=== PATIENT | male | born 1980 | race Caucasian/White ===

== ENCOUNTER → 2017-10-14 | Outpatient (CLI) | payer OTHER ==
--- NOTE | 2017-10-14 13:00 | XR ---
EXAMINATION TYPE: XR orbit complete bilateral DATE OF EXAM: 10/14/2017 COMPARISON: NONE HISTORY: History of orbital metal. Pre-MRI clearance. TECHNIQUE: 4 views of the orbits were obtained. FINDINGS: Paranasal sinuses appear well aerated. There is mild leftward nasal septal deviation. No ra diopaque metallic foreign body is seen. Calvarium is intact. Multiple dental fillings are incidentall y noted. IMPRESSION: No orbital metallic radiopaque foreign body.
--- NOTE | 2017-10-14 16:21 | MR ---
EXAMINATION TYPE: MR cervical spine wo con DATE OF EXAM: 10/14/2017 1:49 PM COMPARISON: NONE HISTORY: Cervical disc degeneration Multiplanar MultiSpin echo imaging of the cervical spine was performed. Comparison: none C2-C3: No evidence for degenerative disc disease. No disc bulge/herniation or protrusion. No Canal stenosis. Foramina are patent bilaterally. C3-C4: No evidence for degenerative disc disease. No disc bulge/herniation or protrusion. No Canal stenosis. Foramina are patent bilaterally. C4-C5: No evidence for degenerative disc disease. No disc bulge/herniation or protrusion. No Canal stenosis. Foramina are patent bilaterally. C5-C6: Mild decreased signal ossified compatible with degenerative disc disease. Posterocentral disc bulge with annular tear noted and mild effacement ventral thecal sac. No evidence for conrad herniatio n. No central stenosis or foraminal encroachment. C6-C7: There is mild disc desiccation. Mild subligamentous right paracentral disc herniation with rig ht foraminal encroachment. No evidence for cord contact or central stenosis. C7-T1: No evidence for degenerative disc disease. No disc bulge/herniation or protrusion. No Canal stenosis. Foramina are patent bilaterally. Cervical segments are intact. There is normal alignment. Cervical spinal cord is of normal signal. Craniovertebral junction relationships are within normal limits. IMPRESSION: 1. Degenerative disc disease as discussed. 2. Mild right paracentral disc herniation C6-7 with the right foraminal encroachment. 3. Posterocentral disc bulge at C5-6 with associated annular tear.
== END | disposition home or self-care (01) ==
LOC: RADMRIMAIN 12:19
PROVIDERS: ATTEND Family Medicine
DX: M50.122 Cervical disc disorder at C5-C6 level with radiculopathy (principal); T15.92XA Foreign body on external eye, part unspecified, left eye, initial encounter; T15.91XA Foreign body on external eye, part unspecified, right eye, initial encounter
CPT/HCPCS: 70200; 72141

== ENCOUNTER → 2017-11-19 | Outpatient (CLI) | payer OTHER ==
[2017-11-14 11:21] VITALS: BMI 23.7
[2017-11-19 11:56] VITALS: BP 120/74; PULSE 84; RESP 18; TEMP 98.3
--- NOTE | 2017-11-19 15:49 | P.CONS ---
History of Present Illness - Reason for Consult Consult date: 11/19/17 - History of Present Illness This is 37 years old male, with a chronic history of severe neck pain with radiation to the right upper extremity associated with numbness and tingling sensation, started several years ago, he denies any initiating event the pain intensity is over and he was treated with physical therapy and pain medication and injected limited improvement only for short-term, he denies any fever or night sweats. Denies any change in the bowel movement or urination and he had no motor or sensory deficits, he reported that he used to feel that his right upper extremity is weaker than the left side but after physical therapy the motor strength improved, Past Medical History Additional Past Medical History / Comment(s): DDD LUMBAR AREA & HERNIATED CERVICAL DISCS WITH PAIN., TINNITUS RIGHT EAR. History of Any Multi-Drug Resistant Organisms: None Reported Past Surgical History: No Surgical Hx Reported Additional Past Anesthesia/Blood Transfusion Reaction / Comm: HAS NEVER RECEIVED ANESTHESIA. 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 Past Drug Use History: Marijuana Additional Drug Use History / Comment(s): MARIJUANA CARD- STATES NO CURRENT USE. - Past Family History Mother Family Medical History: No Reported History Medications and Allergies Home Medications Medication Instructions Recorded Confirmed Type HYDROcodone/APAP 7.5-325MG [[place] 1 tab PO QID PRN 09/19/16 11/19/17 History 7.5-325] Naproxen [Naprosyn] 500 mg PO PRN 11/14/17 History Allergies Allergy/AdvReac Type Severity Reaction Status Date / Time No Known Allergies Allergy Verified 11/14/17 11:12 Physical Exam Vitals: Vital Signs Temp Pulse Resp BP 11/19/17 11:42 98.3 F 84 18 120/74 Social history : not smoker , NO ETOH , NO Illegal drugs use Review of Systems : 1- Constitutional : no chills , no fever , no night sweats , 2- Ears : no ear discharge , no change in hearing 3-Nose, Mouth ,Throat ; no bleeding gums, no sore throat , no epistaxis , 4-Cardiovascular : Denies chest pain, , no orthopnea , no palpitation 5-Respiratory : Denies cough , no dyspnea , no hemoptysis 6-Gastrointestinal :, no change in bowel habits , no coffee- ground emesis . 7-Genitourinary : No hematuria , no discharge , no incontinence, 8-Musculoskeletal : No gait dysfunction , report neck pain and right upper extremity numbness , 9- Neurological : no ataxia , no tremor , no sezure , 10-Psychatric , no suicidal ideation no hallucination 11- Endocrine : no cold intolerence , no polyuria , no polydypsia , 12-Hematologic : no easy bleeding , no easy brusing , 13-Allergic / immunology : no angioedema , no wheezing ,no allergic rhinitis 14-Integumentary : no brttle nails , no change hair / nails , no foot/leg ulcers . Physical Examinations : 1-Constitutional : Cooperative , not in acute distress . 2-HEENT : nech ; supple , no Lymphadenopathy , no Thyromegaly , :eyes , no icterus, no photophobia . ENT : , normal oropharynx , no Thrush 3- Respiratory : Chest clear to auscultations Bilaterally , no wheezing . 4- Cardiovascular : regular rate and rhythem , S1 , S2 , no S3 , no S4. 5- Gastrointestinal: abdomen soft no tenderness , no organomegally . 6- Genitourinary : Defferred . 7-Integumentary : No cellulitis , no ulcers , normal skin turgor , no cyanotic . 8- neurologic : Cranial nerve II to XII intact , no focal neurological deffecit 9-psychatric : alert , oriented X 3 , appropriate affect , intact judgment and insight . 10-Lymphatic : no Lymphadenopathy. 11- musculoskeltal: normal gait Cervical Spine motor stregnth in the deltoid and biceps, normal right side , normal Left side motor stregnth biceps and the wrist extensors normal right side ,normal left side . motor stregnth in the triceps muscle . normal Right side , normal Left side deep tendon reflexes normal at the biceps , normal at Brachioradialis , normal at triceps. Lumber spine moter stegnth lower extremities ,thigh and legs 5/5 Right side , 5/5 Left side Results Comments: MRI of the cervical spine C5 6 cervical bulging disc disease Assessment and Plan Plan: Assessment and plan= cervical radiculopathy, cervical bulging disc disease Patient could benefit from cervical epidural steroid injections, procedure risk and benefit and alternatives discussed with the patient he agreed with the preceding, patient should continue to use his current pain medication and he is getting his medication refilled from his primary care Time with Patient: Greater than 30
== END | disposition home or self-care (01) ==
LOC: PNWHC3 11:18
PROVIDERS: ATTEND Specialist
DX: G89.29 Other chronic pain (principal); M50.122 Cervical disc disorder at C5-C6 level with radiculopathy; F10.20 Alcohol dependence, uncomplicated; Z79.899 Other long term (current) drug therapy; Z79.52 Long term (current) use of systemic steroids; Z87.891 Personal history of nicotine dependence
CPT/HCPCS: 99201

== ENCOUNTER 2017-12-01 06:54 | Day surgery (SDC) | payer OTHER ==
[2017-11-26 11:50] VITALS: BMI 23.7
[2017-12-01 07:33] VITALS: TEMP 98.3
[2017-12-01] MEDS ORDERED: LACTATED RINGERS 1,000 ML IV ONE ×2 (07:33→07:45)
[2017-12-01] MEDS ORDERED: LIDOCAINE 1% 20 ML VIAL (10MG/ML) FOR IV START INTRADERMA ONE (07:35)
--- NOTE | 2017-12-01 08:43 | P.PCN ---
Date of Procedure: 12/01/17 Surgeon: Alan Navarro Pathology: none sent Condition: stable Disposition: PACU Description of Procedure: PREOPERATIVE DIAGNOSIS: Cervical radiculopathy. POSTOPERATIVE DIAGNOSIS: Cervical radiculopathy. PROCEDURE 1. Cervical epidural steroid injection under fluoroscopic guidance, C7-T1 level. 2. Cervical epidurogram. ANESTHESIA: Local anesthesia with 1% lidocaine and IV sedation with versed/ fentanyl. EBL: Minimal PROCEDURE INDICATION: The patient with neck pain and radiculitis unresponsive to conservative treatment consents for procedure, HARRY #1 tooday. No use of blood thinners. PROCEDURE DESCRIPTION / TECHNIQUE: The patient was seen and identified in the preoperative area. Risks, benefits, complications, and alternatives were discussed with the patient (including but not limited to incomplete pain relief, bleeding, infection, nerve damage, and allergies to medications), the patient agreed to proceed with the procedure and signed the consent after all questions were answered. Patient was taken to the OR and time out was completed to verify proper patient , position, laterality of pain, and allergies. Pt was placed in the prone position. A pillow was placed under the patients chest to increase the cervical interlaminar space. The cervical and high thoracic area was prepped and draped in the usual sterile fashion. Critical pause was taken. Vital signs were closely monitored during the procedure. Conscious sedation was used during the procedure to decrease patients anxiety. Using anterior-posterior fluoroscopy, the C7-T1 interlaminar space was identified and the skin over this site was marked and then infiltrated with 1% lidocaine subcutaneously in a paramedian fashion. Subsequently, a 20-gauge 3-1/2 -inch Tuohy epidural needle was inserted and advanced toward the epidural space by means of the loss of resistance technique and guided by AP and lateral fluoroscopy. After negative aspiration for blood or CSF and in the absence of paresthesias, the correct needle position in the epidural space was verified with the injection of 1 mL of the water soluble contrast dye Omnipaque-180 and observing an excellent epidurogram with the epidural spread of the dye, after negative aspiration for blood and CSF and in the absence of paresthesias. Again after negative aspiration, a 4 ml mixture containing 20 mg of Decadron and 2 ml of preservative free Normal Saline solution was injected and a washout of epidurogram was seen. Needle was withdrawn intact, skin was cleansed, and bandages were applied. COMPLICATIONS: None COMMENTS: DISPOSITION / PLANS: The patient was placed in a supine position and transferred to the recovery area in a stable condition for observation. There was no evidence of upper extremity motor or sensory deficit after the procedure. Patient was discharged from the recovery room after meeting discharge criteria. Home discharge instructions were given to the patient by the staff. The patient was reexamined prior to discharge and there were no issues. The patient will schedule a repeat procedure in 3-4 weeks.
[2017-12-01] MEDS ORDERED: IV FLUID CONTINUATION 1,000 ML IV ONE (08:50)
--- NOTE | 2017-12-01 08:55 | FL ---
EXAMINATION TYPE: FL guided pain mgmt statistic DATE OF EXAM: 12/01/2017 FLUOROSCOPY Fluoroscopy time of 4 seconds was used during cervical epidural injection. 2 image/s document/s the procedure.
[2017-12-01 09:05] VITALS: BP 114/79; PULSE 68; RESP 16
== END 2017-12-01 09:21 | disposition home or self-care (01) ==
LOC: ORPAIN 06:54
PROVIDERS: ATTEND Anesthesiology
DX: M50.122 Cervical disc disorder at C5-C6 level with radiculopathy (principal); M51.36 Other intervertebral disc degeneration, lumbar region; Z87.891 Personal history of nicotine dependence
CPT/HCPCS: 62321; J2250; J1100; Q9965; J3010

== ENCOUNTER 2017-12-23 07:25 | Day surgery (SDC) | payer OTHER ==
[2017-12-18 11:17] VITALS: BMI 23.7
[~2017-12-23 07:25] MED LIST: LACTATED RINGERS 1,000 ML IV SCH
[2017-12-23 08:04] VITALS: TEMP 97
--- NOTE | 2017-12-23 08:20 | P.PCN ---
Date of Procedure: 12/23/17 Surgeon: Jermain Padilla Description of Procedure: PREOPERATIVE DIAGNOSIS: Cervical radiculopathy. POSTOPERATIVE DIAGNOSIS: Cervical radiculopathy. PROCEDURE 1. Cervical epidural steroid injection under fluoroscopic guidance, C7-T1 level. 2. Cervical epidurogram. ANESTHESIA: Local anesthesia with 1% lidocaine and IV sedation with versed/ fentanyl. EBL: Minimal PROCEDURE INDICATION: The patient with neck pain and radiculitis unresponsive to conservative treatment consents for procedure, HARRY #2 tooday. No use of blood thinners. PROCEDURE DESCRIPTION / TECHNIQUE: The patient was seen and identified in the preoperative area. Risks, benefits, complications, and alternatives were discussed with the patient (including but not limited to incomplete pain relief, bleeding, infection, nerve damage, and allergies to medications), the patient agreed to proceed with the procedure and signed the consent after all questions were answered. Patient was taken to the OR and time out was completed to verify proper patient , position, laterality of pain, and allergies. Pt was placed in the prone position. A pillow was placed under the patients chest to increase the cervical interlaminar space. The cervical and high thoracic area was prepped and draped in the usual sterile fashion. Critical pause was taken. Vital signs were closely monitored during the procedure. Conscious sedation was used during the procedure to decrease patients anxiety. Using anterior-posterior fluoroscopy, the C7-T1 interlaminar space was identified and the skin over this site was marked and then infiltrated with 1% lidocaine subcutaneously in a right paramedian fashion. Subsequently, a 20- gauge 3-1/2-inch Tuohy epidural needle was inserted and advanced toward the epidural space by means of the loss of resistance technique and guided by AP and lateral fluoroscopy. After negative aspiration for blood or CSF and in the absence of paresthesias, the correct needle position in the epidural space was verified with the injection of 1 mL of the water soluble contrast dye Omnipaque- 180 and observing an excellent epidurogram with the epidural spread of the dye, after negative aspiration for blood and CSF and in the absence of paresthesias. Again after negative aspiration, a 4 ml mixture containing 10 mg of Decadron and 2 ml of preservative free Normal Saline solution was injected and a washout of epidurogram was seen. Needle was withdrawn intact, skin was cleansed, and bandages were applied. COMPLICATIONS: None COMMENTS: DISPOSITION / PLANS: The patient was placed in a supine position and transferred to the recovery area in a stable condition for observation. There was no evidence of upper extremity motor or sensory deficit after the procedure. Patient was discharged from the recovery room after meeting discharge criteria. Home discharge instructions were given to the patient by the staff. The patient was reexamined prior to discharge and there were no issues.
[2017-12-23] MEDS ORDERED: IV FLUID CONTINUATION 1,000 ML IV ONE (08:29)
[2017-12-23 08:31] VITALS: RESP 16
[2017-12-23 08:50] VITALS: BP 140/80; PULSE 75
--- NOTE | 2017-12-23 11:41 | FL ---
Fluoroscopy INDICATION: Pain FINDINGS: Fluoroscopy time: 4 seconds. Images obtained: 1. IMPRESSIONS: 1. Documentation of fluoroscopy.
== END 2017-12-23 08:50 | disposition home or self-care (01) ==
LOC: ORPAIN 07:25
PROVIDERS: ATTEND Anesthesiology
DX: M54.12 Radiculopathy, cervical region (principal)
CPT/HCPCS: 62321; J2250; J1100; Q9965; J3010

== ENCOUNTER → 2018-02-04 | Outpatient (CLI) | payer OTHER ==
[2018-02-04 14:01] VITALS: BP 118/65; PULSE 73; RESP 16
--- NOTE | 2018-02-04 14:19 | P.PN ---
Progress Note - Text Progress Note Date: 02/04/18 Patient returns for followup for chronic neck pain with radiation to R shoulder. Patient recently underwent HARRY x 2 with good relief, but has had some pain return in his right shoulder after he "slept wrong" last week. This acute pain is increasing slowly. Patient denies adverse drug effects from medications. Today, pt denies new-onset weakness, bowel/bladder incontinence, or any other signs or symptoms of cauda equina syndrome. There are no signs of acute intoxication, and no indications of medication diversion or overuse. In addition to above, 13-point review of systems is also negative for chest pain , shortness of breath, changes in vision, changes in hearing, new onset weakness , abdominal pain, diarrhea, extreme fatigue, malaise, fever, skin changes, homicidal or suicidal ideation, or bowel or bladder incontinence. Vital Signs: Reviewed in EMR Gen: WDWN, AAOx3, NAD HEENT: NCAT, EOMI, hearing grossly normal Pulm: resp unlabored Abd: soft, NT, ND Neck: supple, trachea midline ROM in flexion cervical spine: full ROM in extension cervical spine: reduced Cervical paravertebral tenderness: + Cervical Facet tenderness: neg Spurling's: +RUE Upper extremity: decreased automatic mounter strength RUE secondary to pain Imaging: Reviewed in EMR Assessment: 1. cervical radiculitis 2. chronic pain syndrome Plan: 1. Explanation: Opioid and psychological risk scores were reviewed. Diagnoses , prognoses, and multiple treatment options including but not limited to physical therapy, interventional therapies, adjuvant medical therapies, narcotic medication therapies, and surgery were discussed with the patient and all questions were answered to the patient's satisfaction. 2. Opioid agreement: no opioids prescribed today 3. Counseling: The patient was counseled extensively on SMOKING CESSATION, BODY MASS INDEX, EXERCISE. Specifically, the patient was instructed regarding the importance of smoking cessation, weight control, and exercise in the context of both chronic pain and overall health. 4. Procedures: cervical ARAM #3 in eight weeks 5. Consultations: None 6. Investigations: UDS not done today, MAPS queried and appropriate 7. Medications: none prescribed 8. Morphine equivalents per day prescribed: zero 9. Disposition: f/u for HARRY as scheduled PQRS measures: 1-Patient's medications are documented in the chart. 2-Tobacco use is positive, counseling given 3-Patient has not had a pneumococcal vaccine. 4-Advanced care planning discussed, patient unable to give. 5-Opioid contract NOT signed with the patient. 6-Pain positive, follow-up visit or procedure scheduled 7-Patient's blood pressure measured and documented, and patient will follow up with the primary care due to hypertension. 8-Patient's weight was measured, and body mass index WNL. 9-Patient WAS NOT identified as an unhealthy alcohol user.
== END | disposition home or self-care (01) ==
LOC: PNWHC3 13:26
PROVIDERS: ATTEND Anesthesiology
DX: G89.4 Chronic pain syndrome (principal); M54.12 Radiculopathy, cervical region; M54.2 Cervicalgia
CPT/HCPCS: 99211

== ENCOUNTER 2018-04-01 09:00 | Day surgery (SDC) | payer OTHER ==
[2018-03-27 14:36] VITALS: BMI 23.7
[2018-04-01 09:24] VITALS: RESP 16; TEMP 97.6
[2018-04-01] MEDS ORDERED: LIDOCAINE 1% 20 ML VIAL (10MG/ML) FOR IV START INTRADERMA ONE (09:32)
--- NOTE | 2018-04-01 10:19 | P.OP ---
Date of Procedure: 04/01/18 Surgeon: Andres Irizarry Description of Procedure: PREOPERATIVE DIAGNOSIS: Cervical radiculopathy Cervical degenerative disc disease POSTOPERATIVE DIAGNOSIS: Cervical radiculopathy Cervical degenerative disc disease PROCEDURE Cervical neural steroid injection under fluoroscopic guidance at the C7-T1 interspace. ANESTHESIA: Local with 1% lidocaine 3 ml and IV sedation with Versed 2 mg EBL: Minimal PROCEDURE INDICATION: This is a very pleasant 38-year-old gentleman with a history of a disc bulge as well as a disc tear at C5 6 on his MRI who has intractable neck and right shoulder pain. He also previously had pain radiating all the way down his right arm into his hand. He is undergone 2 previous cervical epidural steroid injections and reports both of these gave him significant reduction of his pain with greater than 50% of his pain being gone after these procedures. His pain has returned somewhat and he presents today for repeat of this procedure. PROCEDURE DESCRIPTION / TECHNIQUE: The patient was seen and identified in the preoperative area. Risks, benefits , complications including but not limited to infections ,bleeding ,allergic reaction to the medications ,nerve damage and incomplete pain relief, and alternatives were discussed with the patient. The patient agreed to proceed with the procedure and signed the consent. IV was started, and vital signs were stable. Patient was taken to the OR and time out was completed. The patient was placed in the prone position on procedure table and a pillow was placed under the chest area.. The cervical area was prepped and draped in the usual sterile fashion. Conscious sedation was used during the procedure to decrease patient s anxiety. Vital signs was monitered during the entire procedure. Using anterior-posterior fluoroscopy, the C7-T1 interlaminar space was identified and the skin over this site was marked and then infiltrated with 1% lidocaine subcutaneously. Subsequently, a 20-gauge Tuohy epidural needle was inserted and advanced toward the epidural space using the loss of resistance technique and guided by AP and lateral fluoroscopy. The correct needle position in the epidural space was verified with the injection of contrast and observing an excellent epidurogram with the epidural spread of the dye, after negative aspiration for blood and CSF and in the absence of paresthesias. Again after negative aspiration, a 4 ml mixture containing 20 mg of Dexamethasone was injected. Needle was withdrawn intact, skin was cleansed, and bandages were applied. COMPLICATIONS: None DISPOSITION / PLANS: The patient was placed in a supine position and transferred to the recovery area in a stable condition for observation. There was no evidence of lower extremity motor or sensory deficit after the procedure. Patient was discharged from the recovery room after meeting discharge criteria. Home discharge instructions were given to the patient by the staff. The patient was reexamined prior to discharge. The patient will schedule a follow up in the clinic on an as-needed basis.
[2018-04-01] MEDS ORDERED: IV FLUID CONTINUATION 825 ML IV ONE (10:40)
[2018-04-01 11:01] VITALS: BP 120/77; PULSE 56
--- NOTE | 2018-04-01 12:00 | FL ---
Fluoroscopy INDICATION: Pain FINDINGS: Fluoroscopy time: 2 seconds. Images obtained: 2. IMPRESSIONS: 1. Documentation of fluoroscopy.
== END 2018-04-01 11:02 | disposition home or self-care (01) ==
LOC: ORPAIN 09:00
PROVIDERS: ATTEND Pain Medicine Pain Medicine
DX: M50.10 Cervical disc disorder with radiculopathy, unspecified cervical region (principal)
CPT/HCPCS: 62321; J2250; J1030; J3010; Q9966; 99152

== ENCOUNTER → 2018-11-10 | Outpatient (CLI) | payer OTHER ==
[2018-11-10 12:00] VITALS: BP 122/77; PULSE 98; RESP 18
--- NOTE | 2018-11-10 12:14 | P.PN ---
Subjective Progress Note Date: 11/10/18 Principal diagnosis: Right cervical radiculopathy This is a 38-year-old gentleman with neck pain with radiation down the right upper extremity to the hand with occasional numbness and tingling in the medial 2 fingers. The patient had 3 cervical epidural steroid injection previously the last one was in May of last year which helped him significantly with this pain and His numbness only. The patient is back today asking her to be scheduled for another injection on his neck. The patient denies any other health issues and denies taking any anticoagulants. He denies any weakness in the upper or lower extremities or any bowel or bladder dysfunction. By physical exam he is alert oriented 3 no apparent distress Neuro exam of the upper extremities showed normal and symmetrical muscle strength He has absent right triceps reflex but the rest of his reflexes are normal Positive tenderness in the cervical and upper thoracic right paravertebral musculature. The patient will be scheduled for another series of cervical epidural steroid injection under fluoroscopic guidance at C7-T1 in the right paramedian approach 3. Objective - Vital Signs Vital signs: Vital Signs Temp Pulse 98 11/10/18 11:53 Resp 18 11/10/18 11:53 BP 122/77 11/10/18 11:53 Pulse Ox 97 11/10/18 11:53 Intake & Output 11/09/18 11/10/18 11/10/18 18:59 06:59 18:59 Weight 81.647 kg
== END | disposition home or self-care (01) ==
LOC: PNWHC3 11:38
PROVIDERS: ATTEND Anesthesiology
DX: M54.12 Radiculopathy, cervical region (principal)
CPT/HCPCS: 99211

== ENCOUNTER 2018-11-23 11:57 | Emergency (ER) | payer OTHER ==
[2018-11-23 12:03] VITALS: TEMP 98.4
[2018-11-23] MEDS ORDERED: LIDOCAINE 1% INJ 10MG/ML (20 ML MDV) SQ ONE (13:11)
--- NOTE | 2018-11-23 13:55 | XR ---
EXAMINATION TYPE: XR finger RT DATE OF EXAM: 11/23/2018 COMPARISON: None HISTORY: Pain laceration near the proximal interphalangeal joint space TECHNIQUE: 2 view right index finger FINDINGS: There is some mild soft tissue swelling over the proximal interphalangeal joint region. No acute displaced fractures are evident. Joint spaces appear preserved. IMPRESSION: 1. Mild soft tissue swelling proximal interphalangeal joint space. 2. No radiopaque foreign bodies. 3. No acute osseous abnormality. 4. Follow-up exams can be performed 7-10 days from acute trauma for continued pain.
--- NOTE | 2018-11-23 14:04 | ED ---
Wound/Laceration HPI - General Chief Complaint: Wound/Laceration Stated Complaint: IHS-Finger Lac Time Seen by Provider: 11/23/18 12:27 Source: patient Mode of arrival: ambulatory Limitations: no limitations - History of Present Illness Initial Comments: 38-year-old male no past medical history presenting today for chief complaint of right index finger laceration. Patient states just prior to arrival he was at work when he was moving a cabinet, he states he slid the cabinet over his hand it was a sharp point on the bottom cutting his knuckle at the right next to her. Patient states it appeared superficial, however he thought it could use a stitch and presented for evaluation. Patient states his tetanus is up-to- date last 5 years. Patient denies any significant force or crushing mechanism. Patient denies any pain with range of motion at the digit, weakness or loss sensation. Remaining ROS (-) patient denies any recent fever, chills, shortness of breath, chest pain, back pain, abdominal pain, nausea or vomiting, numbness or tingling, dysuria or hematuria, constipation or diarrhea, headaches or visual changes, or any other complaints.Upon arrival pt appears well, no active bleeding. - Related Data Home Medications Medication Instructions Recorded Confirmed HYDROcodone/APAP 7.5-325MG [[place] 1 tab PO QID PRN 09/19/16 11/20/18 7.5-325] Cyclobenzaprine [Flexeril] 10 mg PO HS PRN 11/20/18 11/20/18 Allergies Allergy/AdvReac Type Severity Reaction Status Date / Time No Known Allergies Allergy Verified 11/23/18 11:59 Review of Systems ROS Statement: Those systems with pertinent positive or pertinent negative responses have been documented in the HPI. ROS Other: All systems not noted in ROS Statement are negative. 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 "bad headaches", History of Any Multi-Drug Resistant Organisms: None Reported Past Surgical History: No Surgical Hx Reported Additional Past Surgical History / Comment(s): pain clinic procedure, cyst removed from left arm Past Anesthesia/Blood Transfusion Reactions: No Reported Reaction Additional Past Anesthesia/Blood Transfusion Reaction / Comment(s): . Past Psychological History: No Psychological Hx Reported Smoking Status: Former smoker Past Alcohol Use History: Occasional Past Drug Use History: None Reported - Past Family History Mother Family Medical History: No Reported History General Exam - General Exam Comments Initial Comments: General: The patient is awake and alert, in no distress, and does not appear acutely ill. Eye: Pupils are equal, round and reactive to light, extra-ocular movements are intact. No nystagmus. There is normal conjunctiva bilaterally. No signs of icterus. Cardiovascular: There is a regular rate and rhythm. No murmur, rub or gallop is appreciated. Respiratory: Lungs are clear to auscultation, respirations are non-labored, breath sounds are equal. No wheezes, stridor, rales, or rhonchi. Musculoskeletal: Normal ROM at the MTP, dip p.m. PIP joint of the affected hand equal comparison with the unaffected, strength is 5 out of 5 for all tested digits each joint was isolated of the affected digit, no tenderness. Sensation intact proximal and distal to injury. Radial pulses equal bilaterally 2+. Capillary refill of affected digit < 2seconds. Neurological: A&O x 3. CN II-XII intact, There are no obvious motor or sensory deficits. Coordination appears grossly intact. Speech is normal. Skin: Skin is warm and dry and no rashes or lesions are noted. 1cm linear laceration, superficial over MTP of right index finger. Psychiatric: Cooperative, appropriate mood & affect, normal judgment. Limitations: no limitations Course Vital Signs 11/23/18 11/23/18 12:00 14:10 Temperature 98.4 F Pulse Rate 74 71 Respiratory 18 16 Rate Blood Pressure 127/86 126/72 O2 Sat by Pulse 98 98 Oximetry Procedures - Laceration Laceration #1 Consent Obtained: verbal consent Indication: laceration Site: hand (right index finger) Size (cm): 1 Description: linear Depth: simple, single layer Anesthetic Used: lidocaine 1% Anesthesia Technique: local infiltration Amount (mls): 1 Pre-repair: wound explored, irrigated extensively, deep structures intact Type of Sutures: nylon Size of Sutures: 5-0 Number of Sutures: 2 Technique: simple, interrupted Patient Tolerated Procedure: well, no complications Additional Comments: After extensive expiration and irrigation it appeared wound was very superficial. No evidence concerning for deeper injury. If this location was not over a joint I feel topical skin adhesive would be appropriate however given significant range of motion at the MTP joint I will place to superficial stitches Medical Decision Making - Medical Decision Making 38-year-old male presenting for finger laceration. Neurovascular exam intact. No evidence of weakness, initially was isolated including the MTP DIP and PIP joint. Upon expiration of laceration or evidence concerning for underlying injury. Appears very superficial. If location was in a last hypertension or range of motion area I would have applied skin adhesive. 2 superficial sutures were applied 4. 0 nylon patient tolerated procedure well. Tetanus up-to-date per patient patient will be discharged with outpatient follow-up and return for suture removal. Patient is to return immediately for any limitations or weakness of the digit. Patient verbalizes understanding. Patient discharged stable condition appearing well. I did discuss the case with attending provider Dr. Benedict prior to discharge, who was agreeable with impression and plan given presentation. Disposition Clinical Impression: Laceration of finger of left hand Disposition: HOME SELF-CARE Condition: Good Instructions (If sedation given, give patient instructions): Care For Your Stitches (ED), Finger Laceration (ED) Additional Instructions: Please use medication as discussed. Please follow-up in the ER for suture removal in 5-7 days. Please return to emergency room if the symptoms increase or worsen or for any other concerns, including any decreased ROM or weakness of digit as discussed. Is patient prescribed a controlled substance at d/c from ED?: No Referrals: Zarina Moreno MD [Primary Care Provider] - 1-2 days Time of Disposition: 14:03
[2018-11-23 14:24] VITALS: BP 126/72; PULSE 71; RESP 16
== END 2018-11-23 14:10 | disposition home or self-care (01) ==
LOC: EC 11:57
DX: S61.210A Laceration without foreign body of right index finger without damage to nail, initial encounter (principal); Z87.891 Personal history of nicotine dependence; W26.8XXA Contact with other sharp object(s), not elsewhere classified, initial encounter; Y92.69 Other specified industrial and construction area as the place of occurrence of the external cause; Y99.0 Civilian activity done for income or pay
CPT/HCPCS: 73140; 99283; 12001; J2001

== ENCOUNTER → 2018-11-24 | Day surgery (SDC) | payer OTHER ==
[2018-11-20 13:17] VITALS: BMI 23.7
[~2018-11-24] MED LIST changes: +IV FLUID CONTINUATION 800 ML IV ONE; +LACTATED RINGERS 1,000 ML IV ONE; -LACTATED RINGERS 1,000 ML IV SCH; +LIDOCAINE 1% 20 ML VIAL (10MG/ML) FOR IV START INTRADERMA ONE; +SODIUM CHLORIDE 0.9% 500 ML 500 ML IV SCH
[2018-11-24 07:16] VITALS: TEMP 97.9
--- NOTE | 2018-11-24 08:06 | P.PCN ---
Date of Procedure: 11/24/18 Procedure(s) Performed: . PROCEDURE 1. Cervical epidural steroid injection under fluoroscopic guidance, C7-T1 2. Cervical epidurogram. PREOPERATIVE DIAGNOSIS: 1- Cervical Degenerative Disc Diseases 2- Cervical radiculopathy. POSTOPERATIVE DIAGNOSIS: : 1- Cervical Degenerative Disc Diseases , 2- Cervical radiculopathy. ANESTHESIA: Local anesthesia with lidocaine 1 % , and moderate sedation, with Versed 2 mg and Fentanyl 50 mcg. EBL 0 PROCEDURE INDICATION: The patient with neck pain and radiculitis unresponsive to conservative treatment consents for procedure. PROCEDURE DESCRIPTION / TECHNIQUE: The patient was seen and identified in the preoperative area. Risks, benefits, complications, including but not limited to infections ,bleeding , allergic reactions to the medications ,and not complete pain releife, and alternatives were discussed with the patient, the patient agreed to proceed with the procedure and signed the consent. Patient was taken to the OR and time out was completed. The patient was placed in the prone position on the procedure table. A pillow was placed under the patients chest to increase the cervical interlaminar space. The cervical area was prepped and draped in the usual sterile fashion. Vital signs were closely monitored during the procedure. Conscious sedation was used during the procedure to decrease patients anxiety. Using anterior-posterior fluoroscopy, the C7-T1 interlaminar space was identified and the skin over this site was marked and then infiltrated with 1% lidocaine subcutaneously. Subsequently, a 20-gauge 3-1/2-inch Tuohy epidural needle was inserted and advanced toward the epidural space by means of the `` hanging-drop technique and guided by AP and lateral fluoroscopy. The correct needle position in the epidural space was verified with the injection of 2 mL of the water soluble contrast dye Isovue-200 and observing an excellent epidurogram with the epidural spread of the dye, after negative aspiration for blood and CSF and in the absence of paresthesias. Again after negative aspiration, mixture containing 20 mg Dexamethasone and 2 ml of preservative- free normal saline injected and a washout of epidurogram was seen. Needle was withdrawn intact, skin was cleansed, and bandages were applied. Complications= none. Disposition= patient was placed in supine position and transferred to the recovery room area in stable condition and there was no evidence of upper or lower extremity motor or sensory deficit after the procedure patient was discharged from recovery room after discharge criteria met and home discharge instructions was given by the staff and patient will follow with the pain clinic in 2-4 weeks
[2018-11-24 08:28] VITALS: RESP 18
[2018-11-24 08:38] VITALS: BP 122/70; PULSE 70
--- NOTE | 2018-11-24 10:35 | FL ---
EXAMINATION TYPE: FL guided pain mgmt statistic DATE OF EXAM: 11/24/2018 FLUOROSCOPY Fluoroscopy time of 2 seconds was used during cervical epidural steroid injection. 1 image/s documen t/s the procedure.
== END | disposition home or self-care (01) ==
LOC: ORPAIN 06:56
PROVIDERS: ATTEND Specialist
DX: M50.10 Cervical disc disorder with radiculopathy, unspecified cervical region (principal)
CPT/HCPCS: 62321; J2250; J1100; J3010; Q9966

== ENCOUNTER 2018-12-08 06:58 | Day surgery (SDC) | payer OTHER ==
[2018-12-03 11:41] VITALS: BMI 25.0
[2018-12-08] MEDS ORDERED: SODIUM CHLORIDE 0.9% 500 ML 500 ML IV SCH (07:08)
[2018-12-08 07:21] VITALS: RESP 16; TEMP 96.9
[2018-12-08] MEDS ORDERED: LIDOCAINE 1% 20 ML VIAL (10MG/ML) FOR IV START INTRADERMA ONE (07:24)
[2018-12-08] MEDS ORDERED: LACTATED RINGERS 1,000 ML IV ONE (07:24)
--- NOTE | 2018-12-08 08:34 | P.PCN ---
Date of Procedure: 12/08/18 Procedure(s) Performed: 1. Cervical epidural steroid injection under fluoroscopic guidance, C7-T1 2. Cervical epidurogram. PREOPERATIVE DIAGNOSIS: 1- Cervical Degenerative Disc Diseases 2- Cervical radiculopathy. POSTOPERATIVE DIAGNOSIS: : 1- Cervical Degenerative Disc Diseases , 2- Cervical radiculopathy. ANESTHESIA: Local anesthesia with lidocaine 1 % , and moderate sedation, with Versed 2 mg and Fentanyl 50 mcg. EBL 0 PROCEDURE INDICATION: The patient with neck pain and radiculitis unresponsive to conservative treatment consents for procedure. PROCEDURE DESCRIPTION / TECHNIQUE: The patient was seen and identified in the preoperative area. Risks, benefits, complications, including but not limited to infections ,bleeding , allergic reactions to the medications ,and not complete pain releife, and alternatives were discussed with the patient, the patient agreed to proceed with the procedure and signed the consent. Patient was taken to the OR and time out was completed. The patient was placed in the prone position on the procedure table. A pillow was placed under the patients chest to increase the cervical interlaminar space. The cervical area was prepped and draped in the usual sterile fashion. Vital signs were closely monitored during the procedure. Conscious sedation was used during the procedure to decrease patients anxiety. Using anterior-posterior fluoroscopy, the C7-T1 interlaminar space was identified and the skin over this site was marked and then infiltrated with 1% lidocaine subcutaneously. Subsequently, a 20-gauge 3-1/2-inch Tuohy epidural needle was inserted and advanced toward the epidural space by means of the `` hanging-drop technique and guided by AP and lateral fluoroscopy. The correct needle position in the epidural space was verified with the injection of 2 mL of the water soluble contrast dye Isovue-200 and observing an excellent epidurogram with the epidural spread of the dye, after negative aspiration for blood and CSF and in the absence of paresthesias. Again after negative aspiration, mixture containing 20 mg Dexamethasone and 2 ml of preservative- free normal saline injected and a washout of epidurogram was seen. Needle was withdrawn intact, skin was cleansed, and bandages were applied. Complications= none. Disposition= patient was placed in supine position and transferred to the recovery room area in stable condition and there was no evidence of upper or lower extremity motor or sensory deficit after the procedure patient was discharged from recovery room after discharge criteria met and home discharge instructions was given by the staff and patient will follow with the pain clinic in 2-4 weeks
[2018-12-08] MEDS ORDERED: IV FLUID CONTINUATION 1,000 ML IV ONE (08:39)
--- NOTE | 2018-12-08 08:46 | FL ---
EXAMINATION TYPE: FL guided pain mgmt statistic DATE OF EXAM: 12/08/2018 CLINICAL HISTORY: Neck pain. TECHNIQUE: Fluoroscopy. COMPARISON: None. FINDINGS: Fluoroscopic guidance was provided during pain relief procedure performed by Dr. Bal . A total of 5 seconds of fluoroscopic time was utilized during the procedure and 3 spot images are acquired. Images acquired shows needle localization at level of lower cervical spine. IMPRESSION: As Above.
[2018-12-08 08:57] VITALS: BP 113/79; PULSE 76
== END 2018-12-08 09:12 | disposition home or self-care (01) ==
LOC: ORPAIN 06:58
PROVIDERS: ATTEND Specialist
DX: M50.10 Cervical disc disorder with radiculopathy, unspecified cervical region (principal)
CPT/HCPCS: 62321; J2250; J1100; J3301; Q9966; 99152

== ENCOUNTER → 2019-01-12 | Outpatient (CLI) | payer OTHER ==
[2019-01-12 10:52] VITALS: BP 117/75; PULSE 98; RESP 16
--- NOTE | 2019-01-12 11:01 | P.PAINPG ---
Subjective Progress Note Date: 01/12/19 Mr. Mari is a 39-year-old gentleman who presents today for a follow-up. He has a history of cervical radiculopathy. He is status post 2 epidural injections this year and reports that he is doing extremely well. He reports that about 90% of his pain is improved. He is able to work and is working full- time. He reports after his last epidural he did have a pain in his neck for a few days which subsided eventually may have been related to him sleeping on the couch. He reports that he has no numbness or tingling in his arms. He does have some pain with flexion of the neck but no radicular symptoms associated. He reports he is doing well and is inquiring if he needs to repeat the epidural third time. Objective - Vital Signs Vital signs: Vital Signs Temp Pulse 98 01/12/19 10:44 Resp 16 01/12/19 10:44 BP 117/75 01/12/19 10:44 Pulse Ox 98 01/12/19 10:44 Intake & Output 01/11/19 01/12/19 01/12/19 18:59 06:59 18:59 Weight 81.647 kg - Exam PHYSICAL EXAM: Constitutional: Awake and alert no distress Cardiovascular exam: Regular rate, no lower extremity edema, palpable pulses bilaterally Respiratory exam: No audible wheezing, no accessory muscle usage Abdominal exam: Soft nontender Muscular skeletal exam: - Cervical spine: Nontender to palpation bilaterally. Range of motion is slightly limited with flexion within normal extension and lateral rotation along with side bending. Spurling is negative bilateral. Facet loading is negative bilaterally - Lumbar spine: Preserved lumbar lordosis. No changes in skin. Nontender palpation bilateral. Patient has full range of motion in flexion and extension as well as lateral sidebending. Straight leg raise is negative. Facet loading is negative. Nontender over the SI joints. PRISCILA Negative, Gaenselons negative, SI Joint compression negative. Neuro exam: Normal sensation bilateral upper and lower extremities. Deep tendon reflexes are 2+ bilaterally. Herman's is negative Psychiatric exam: Cooperative, good insight Assessment and Plan Assessment: #1 cervical radiculopathy Plan: At this point do not believe we need to repeat epidural third time. We will keep that available for him if his pain does come back. We will see the patient back only as needed. I advised him to continue working on a regular basis and continue to exercise in a regular basis. We do not prescribe him any medications and none were prescribed on today's visit. PQRS Measure Charge Sheet Measure #130: Documentation of Current Meds in Medical Chart: Patient's medications documented in chart Measure #226: Tobacco Use: Screen & Cessation Intervention: Pt screened for tobacco use AND intervention given Measure #111: Pneumonia Vaccination: Pneumococcal vaccine NOT administered or previously given Measure #47: Advance Care Plan: Advance care planning discussed & documented, pt chose/unable to give Measure #317: Preventitive Care & Scrn High Bld Press & F/U: Normal blood pressure, f/u not required Measure #131: Pain Assessment & Follow-up: Pain positive & plan documented, Follow-up PRN PQRS Narrative: Smoking Status Former smoker Do You Want the Pneumonia No Vaccine AT THIS TIME? Blood Pressure 117/75 Pain Intensity [Right 1 Posterior Neck] Scale Used Numeric (1 - 10) Hx Alcohol Use (MH) Yes: occ Home Medications: Ambulatory Orders HYDROcodone/APAP 7.5-325MG [[place] 7.5-325] 1 tab PO QID PRN 09/19/16 Cyclobenzaprine [Flexeril] 10 mg PO HS PRN 11/20/18 Controlled Substance Measures - Controlled Substance Measures Is patient prescribed a controlled substance at discharge?: No
== END ==
LOC: PNWHC3 10:35
PROVIDERS: ATTEND Hospitalist
DX: M54.12 Radiculopathy, cervical region (principal); Z87.891 Personal history of nicotine dependence; Z79.891 Long term (current) use of opiate analgesic; Z79.899 Other long term (current) drug therapy
CPT/HCPCS: 99211

== ENCOUNTER → 2021-02-16 | Outpatient (CLI) | payer OTHER ==
--- NOTE | 2021-02-16 14:18 | XR ---
EXAMINATION TYPE: XR shoulder complete LT DATE OF EXAM: 02/16/2021 COMPARISON: NONE HISTORY: Pain TECHNIQUE: 3 views FINDINGS: I see no fracture nor dislocation. Glenohumeral joint is intact. There are no pathologic ca lcifications. IMPRESSION: Negative left shoulder exam. No fracture.
--- NOTE | 2021-02-16 14:19 | XR ---
EXAMINATION TYPE: XR cervical spine comp DATE OF EXAM: 02/16/2021 COMPARISON: 11/26/2011 HISTORY: Neck pain TECHNIQUE: 5 views FINDINGS: Vertebra have normal alignment. There is C6-7 mild anterior spur formation. There is no com pression fracture. Atlantoaxial facet joint is normal. There are no cervical ribs. The neural foramin a are fairly well-maintained. IMPRESSION: There is some degenerative anterior spurring at C6-7 which is new compared to old exam. N o fracture.
== END | disposition home or self-care (01) ==
LOC: RADXRMAIN 13:45
PROVIDERS: ATTEND Emergency Medicine
DX: M46.02 Spinal enthesopathy, cervical region (principal); M25.512 Pain in left shoulder
CPT/HCPCS: 72050

== ENCOUNTER → 2021-03-07 | Outpatient (CLI) | payer OTHER ==
--- NOTE | 2021-03-07 09:13 | MR ---
MRI CERVICAL SPINE: CLINICAL HISTORY: Sprain injury with headache and neck pain causing pain or weakness into left arm an d fingers. TECHNIQUE: Multiplanar, multisequence imaging of the cervical spine is performed without IV contrast. COMPARISON: MRI cervical spine October 14, 2017.Cervical spine x-ray February 16, 2021 FINDINGS: Sagittal images of the cervical spine show the craniocervical junction to remain within nor mal limits. The cervical and upper thoracic spinal cord remains normal in course, caliber, and signa l. Vertebral alignment is stable and satisfactory. The vertebral body and intravertebral disk heigh ts remain normal. The bone marrow signal intensity is within normal limits. Axial images show multilevel uncovertebral facet degenerative changes. At C5-C6 level there is mild right greater than left bilateral neural foraminal narrowing due to unco vertebral facet degenerative changes. Mild broad disc bulge mildly effaces the anterior thecal sac. N o significant change from prior. Axial images at C6-C7 level shows broad-based right paracentral/foraminal disc protrusion effacing an terolateral thecal sac and causing asymmetric moderate to borderline severe right-sided neural forami nal narrowing. There is mild left-sided neural foraminal narrowing. No significant change from prior. Axial images at C7-T1 level remain within normal limits. IMPRESSION: Degenerative changes C5-C6 and C6-C7 level redemonstrated as detailed above without signi ficant degenerative progression from 2018 MRI.
== END | disposition home or self-care (01) ==
LOC: RADMRIMAIN 08:07
PROVIDERS: ATTEND Emergency Medicine
DX: M47.812 Spondylosis without myelopathy or radiculopathy, cervical region (principal)
CPT/HCPCS: 72141

== ENCOUNTER 2024-02-02 17:23 | Emergency (ER) | payer BC, OTHER ==
[2024-02-02 17:52] VITALS: BP 117/76; PULSE 61; RESP 20; TEMP 98
--- NOTE | 2024-02-02 17:59 | ED ---
Wound/Laceration HPI - General Chief Complaint: Wound/Laceration Stated Complaint: Injury to R hand Time Seen by Provider: 02/02/24 17:40 Source: patient, RN notes reviewed Mode of arrival: ambulatory Limitations: no limitations - History of Present Illness Initial Comments: This is a 44-year-old male who presents to the emergency department chief compla int of a injury to his right hand middle finger. Patient states that he was at home using a (part of the left malfunctioned smashing his finger between 2 pieces of material. He denies loss of consciousness at time of injury. He denies paresthesias, states he is able to have slight range of motion to the affected finger he denies wrist or elbow pain. Last tetanus vaccination was over 5 years ago, patient is unaware of the year. - Related Data Home Medications Medication Instructions Recorded Confirmed HYDROcodone/APAP 7.5-325MG [[place] 1 tab PO QID PRN 09/19/16 01/12/19 7.5-325] Cyclobenzaprine [Flexeril] 10 mg PO HS PRN 11/20/18 01/12/19 Previous Rx's Medication Instructions Recorded Cephalexin [Keflex] 500 mg PO Q6HR #40 cap 02/02/24 Allergies Allergy/AdvReac Type Severity Reaction Status Date / Time No Known Allergies Allergy Verified 02/02/24 17:27 Review of Systems ROS Statement: Those systems with pertinent positive or pertinent negative responses have been documented in the HPI. ROS Other: All systems not noted in ROS Statement are negative. 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 "bad headaches", History of Any Multi-Drug Resistant Organisms: None Reported Past Surgical History: No Surgical Hx Reported Additional Past Surgical History / Comment(s): pain clinic procedure, cyst removed from left arm Past Anesthesia/Blood Transfusion Reactions: No Reported Reaction Additional Past Anesthesia/Blood Transfusion Reaction / Comment(s): . Past Psychological History: No Psychological Hx Reported Smoking Status: Never smoker Past Alcohol Use History: Occasional Past Drug Use History: None Reported - Past Family History Mother Family Medical History: No Reported History General Exam Limitations: no limitations General appearance: alert, in no apparent distress Head exam: Present: atraumatic, normocephalic, normal inspection Eye exam: Present: normal appearance, PERRL, EOMI. Absent: scleral icterus, conjunctival injection, periorbital swelling ENT exam: Present: normal exam, mucous membranes moist Neck exam: Present: normal inspection. Absent: tenderness, meningismus, lymphadenopathy Respiratory exam: Present: normal lung sounds bilaterally. Absent: respiratory distress, wheezes, rales, rhonchi, stridor Cardiovascular Exam: Present: regular rate, normal rhythm, normal heart sounds. Absent: systolic murmur, diastolic murmur, rubs, gallop, clicks GI/Abdominal exam: Present: soft, normal bowel sounds. Absent: distended, tenderness, guarding, rebound, rigid Extremities exam: Present: normal inspection, full ROM, normal capillary refill. Absent: tenderness, pedal edema, joint swelling, calf tenderness Right Hand Wrist exam: Present: tenderness (over the DIP, laceration over the ventral third DIP), laceration, deformity, subungual hematoma. Absent: normal inspection, full ROM Neuro motor exam: Present: wrist extension intact, thumb opposition intact Vascular: Present: normal capillary refill, radial pulse (2+). Absent: vascular compromise Back exam: Present: normal inspection Neurological exam: Present: alert, oriented X3, CN II-XII intact Psychiatric exam: Present: normal affect, normal mood Skin exam: Present: warm, dry, intact, normal color. Absent: rash Course Vital Signs 02/02/24 17:25 Temperature 98 F Pulse Rate 61 Respiratory 20 Rate Blood Pressure 117/76 O2 Sat by Pulse 99 Oximetry Procedures - Laceration Laceration #1 Consent Obtained: verbal consent Indication: laceration Site: hand Description: linear Depth: simple, single layer Anesthetic Used: lidocaine 1% Anesthesia Technique: local infiltration Pre-repair: wound explored, irrigated extensively Type of Sutures: nylon Size of Sutures: 4-0 Number of Sutures: 3 Technique: simple, interrupted Patient Tolerated Procedure: well, no complications Medical Decision Making - Medical Decision Making Was pt. sent in by a medical professional or institution ([facility], [employer], urgent care, hospital, or assisted...) When possible be specific @ -No Did you speak to anyone other than the patient for history (EMS, parent, family, police, friend...)? What history was obtained from this source @ -No Did you review nursing and triage notes (agree or disagree)? Why? @ -I reviewed and agree with nursing and triage notes Were old charts reviewed (outside hosp., previous admission, EMS record, old EKG, old radiological studies, urgent care reports/EKG's, assisted records)? Report findings @ -No old charts were reviewed Differential Diagnosis (chest pain, altered mental status, abdominal pain women, abdominal pain men, vaginal bleeding, weakness, fever, dyspnea, syncope, headache, dizziness, GI bleed, back pain, seizure, CVA, palpatations, mental health, musculoskeletal)? @ -Differential Musculoskeletal Muscular strain, contusion, ligament sprain, fracture, arthritis, septic arthritis, bursitis, cellulitis, muscle spasm, nerve compression, DVT, arterial occlusion, herpes zoster, electrolyte abnormality, tumor.... This is not meant to be in all inclusive list EKG interpreted by me (3pts min.). @ -As above X-rays interpreted by me (1pt min.). @ -X-ray of the patient's right hand reveals a nondisplaced tuft fracture of the third digit. CT interpreted by me (1pt min.). @ -None done U/S interpreted by me (1pt. min.). @ -None done What testing was considered but not performed or refused? (CT, X-rays, U/S, labs)? Why? @ -None What meds were considered but not given or refused? Why? @ -None Did you discuss the management of the patient with other professionals (professionals i.e. , PA, DEICER FINISHER, lab, RT, psych nurse, group social worker, business unit controller, teacher, probation officer, case management coordinator)? Give summary @ -No Was smoking cessation discussed for >3mins.? @ -No Was critical care preformed (if so, how long)? @ -No Were there social determinants of health that impacted care today? How? (Homelessness, low income, unemployed, alcoholism, drug addiction, transportation, low edu. Level, literacy, decrease access to med. care, alf, rehab)? @ -No Was there de-escalation of care discussed even if they declined (Discuss DNR or withdrawal of care, Hospice)? DNR status @ -No What co-morbidities impacted this encounter? (DM, HTN, Smoking, COPD, CAD, Cancer, CVA, ARF, Chemo, Hep., AIDS, mental health diagnosis, sleep apnea, morbid obesity)? @ -None Was patient admitted / discharged? Hospital course, mention meds given and route, prescriptions, significant lab abnormalities, going to OR and other pertinent info. @ -Discharge. 44-year-old male with a complaint of right hand injury. Lamination patient noted to have laceration over the wound right third digit with correlated fracture of the third digit. At this time patient will be treated as an open fracture and be given IM Ancef. Patient also given tetanus vaccination due to not remembering the year of his most recent vaccine. Area was thoroughly irrigated with Betadine and sterile water. 3 simple interrupted sutures were placed. Patient's finger wrapped and splinted. Patient provided with follow-up with orthopedic hand specialist for further evaluation. I discussed with Dr. Harry. Patient provided with outpatient antibiotic prescription. Undiagnosed new problem with uncertain prognosis? @ -No Drug Therapy requiring intensive monitoring for toxicity (Heparin, Nitro, Insulin, Cardizem)? @ -No Were any procedures done? @ -local anasthetic with infiltration of 1% lidocaine. 3 simple interrupted sutures placed. Patient;s digit wrapped and placed in short finger splint. Diagnosis/symptom? @ -Default Acute, or Chronic, or Acute on Chronic? @ -Acute fracture of third digit, laceration Uncomplicated (without systemic symptoms) or Complicated (systemic symptoms)? @ -uncomplicated Side effects of treatment? @ -No Exacerbation, Progression, or Severe Exacerbation? @ -No Poses a threat to life or bodily function? How? (Chest pain, [place], [place], pneumonia, PE, COPD, DKA, ARF, appy, cholecystitis, CVA, Diverticulitis, Homicidal, Suicidal, threat to staff... and all critical care pts) @ -No Disposition Clinical Impression: Laceration, Fracture of distal phalanx of finger of right hand, Open fracture Narrative: Please return to the Emergency Department if symptoms worsen or any other concerns. Follow-up with your primary care provider removal of sutures. Complete full course of antibiotics. Follow-up with provided orthopedic hand specialist. Disposition: HOME SELF-CARE Condition: Good Instructions (If sedation given, give patient instructions): Care For Your Stitches (DC) Prescriptions: Cephalexin [Keflex] 500 mg PO Q6HR #40 cap Is patient prescribed a controlled substance at d/c from ED?: No Referrals: Maira Bates MD [Primary Care Provider] - 1-2 days Sebastian Paulino DO [Doctor of Osteopathic Medicine] - 1-2 days Time of Disposition: 19:04
[2024-02-02] MEDS: HYDROmorphone 1 MG/ML 1 ML SYRINGE IM STA (18:15)
[2024-02-02] MEDS: DIPH,PERTUS(ACELL)TETVAC-LF 0.5 ML VIAL IM ONE (18:17)
[2024-02-02] MEDS: LIDOCAINE 1% INJ 10MG/ML (20 ML MDV) SQ ONE (18:20)
[2024-02-02] MEDS: ceFAZolin 1,000 MG VIAL (IM USE) IM STA (18:21)
--- NOTE | 2024-02-02 18:21 | XR ---
Right hand HISTORY: Pain and trauma COMPARISON: 11/23/2018. TECHNIQUE: 3 views right hand were obtained FINDINGS: There is a nondisplaced tuft fracture the third digit. There is no radiopaque foreign body. There is deformity of the fifth metacarpal consistent with a remote healed fracture. There are no dislocations. There are no focal intraosseous abnormalities. IMPRESSION: Nondisplaced tuft fracture of the third digit
== END 2024-02-02 19:25 | disposition home or self-care (01) ==
LOC: EC 17:23
DX: S62.632B Displaced fracture of distal phalanx of right middle finger, initial encounter for open fracture (principal); Z23 Encounter for immunization; W23.0XXA Caught, crushed, jammed, or pinched between moving objects, initial encounter
CPT/HCPCS: 73130; 90715; 99283; 90471; 96372 ×2; 12001; J0690; J2001; J1170

== ENCOUNTER → 2024-04-21 | Outpatient (CLI) | payer OTHER ==
--- NOTE | 2024-05-03 07:20 | MR ---
EXAMINATION TYPE: MR lspine/sacrum wo con DATE OF EXAM: 04/21/2024 COMPARISON: None HISTORY: Lower back pain, radiates into left buttock. CONTRAST: 0 mL intravenous Gadavist. TECHNIQUE: Multiplanar, multisequence images of the lumbar spine were acquired. FINDINGS: Cord terminates at the L1 level. Disc heights are preserved. Vertebral body heights are pr eserved. Alignment is normal. Some disc desiccation is present L4-5. Remaining discs have normal hydr ation. L5-S1: No significant disc bulge or disc herniation. No spinal canal stenosis. Some [id number] e left foraminal narrowing at L5-S1 is present. Mild right foraminal narrowing may be present. L4-L5: No significant disc bulge or disc herniation. No spinal canal stenosis. Mild bilateral nieves inal narrowing at L4-5. In the axial plane there appears to be some left to right lateral disc bulgi ng contributing to the foraminal narrowing. L3-L4: No significant disc bulge or disc herniation. No spinal canal stenosis. No foraminal stenosi s. . L2-L3: No significant disc bulge or disc herniation. No spinal canal stenosis. No foraminal stenosi s. . L1-L2: No significant disc bulge or disc herniation. No spinal canal stenosis. No foraminal stenosi s. . T12-L1: No significant disc bulge or disc herniation. No spinal canal stenosis. No foraminal stenos is. . Sacrum: Additional images performed through the sacrum and coccyx. Sacral iliac joints appear unremarkable. Neural foramen appear widely patent. Sacral canal appears no rmal. IMPRESSION: 1. Mild L4-5 and L5-S1 foraminal narrowing discussed above. 2. Sacrum as visualized appears unremarkable.
== END | disposition home or self-care (01) ==
LOC: RADMRIMAIN 13:20
PROVIDERS: ATTEND Family Medicine
DX: M99.73 Connective tissue and disc stenosis of intervertebral foramina of lumbar region (principal)
CPT/HCPCS: 72148; 72195